=== PATIENT | male | born 1980 | race Caucasian/White ===

== ENCOUNTER 2021-03-29 18:11 | Emergency (ER) | payer MEDICAID ==
[~2021-03-29] VITALS: Ht 180.3 cm; Wt 77.2 kg
--- NOTE | 2021-03-29 20:55 | NUR ---
ASSUMED CARE OF PT. PT ROOMED IN BED 16. PT LYING IN BED TALKING TO UNSEEN PEOPLE.
[2021-03-29 21:21] LABS: BASOPHILS % (AUTO) 0.7 % (0-1); EOSINOPHILS # (AUTO) 0.1 X10'3 (0-0.9); EOSINOPHILS % (AUTO) 0.9 % (0-6); HEMATOCRIT 39.4 % (42.0-52.0); HEMOGLOBIN 13.3 g/dl (14.0-17.9); LYMPHOCYTES # (AUTO) 2.3 X10'3 (1.1-4.8); LYMPHOCYTES % (AUTO) 35.3 % (21-51); MEAN CORPUSCULAR HEMOGLOBIN 27.6 PG (27.0-31.0); MEAN CORPUSCULAR HGB CONC 33.7 g/dL (33.0-36.5); MEAN CORPUSCULAR VOLUME 81.9 FL (78-98); MEAN PLATELET VOLUME 8.1 FL (7.4-10.4); NEUTROPHILS # (AUTO) 3.1 X10'3 (1.8-7.7); NEUTROPHILS % (AUTO) 48.1 % (42-75); PLATELET COUNT 256 X10'3 (140-440); RED BLOOD COUNT 4.82 X10'6 (4.70-6.10); RED CELL DISTRIBUTION WIDTH 13.6 % (11.5-14.5); WHITE BLOOD COUNT 6.4 X10'3 (4.5-11.0)
[2021-03-29 21:35] LABS: ALANINE AMINOTRANSFERASE 33 U/L (12-78); ALBUMIN 4.3 G/DL (3.4-5.0); ALBUMIN/GLOBULIN RATIO 1.3 (1.1-1.5); ALKALINE PHOSPHATASE 87 IU/L (46-116); ANION GAP 12 (8-16); ASPARTATE AMINO TRANSFERASE 32 U/L (10-37); BILIRUBIN,TOTAL 0.9 MG/DL (0.1-1.0); BLOOD UREA NITROGEN 19 MG/DL (7-18); BUN/CREATININE RATIO 22.1 (5.4-32.0); CHLORIDE 104 MMOL/L (99-107); CREATININE 0.86 MG/DL (0.60-1.10); GLUCOSE 83 MG/DL (70-104); POTASSIUM 3.7 MMOL/L (3.5-5.1); SODIUM 141 MMOL/L (135-145); TOTAL CARBON DIOXIDE 24.7 MMOL/L (24-32); TOTAL PROTEIN 7.6 G/DL (6.4-8.2); eGFR > 90 ML/MIN
[2021-03-29 21:45] LABS: ETHANOL < 0.010 GM/DL (0.0-0.010)
[2021-03-29 21:52] LABS: ACETAMINOPHEN < 2.0 UG/ML (10-30)
[2021-03-29 22:21] LABS: CLARITY,URINE SLIGHTLY CLOUDY (Clear); COLOR,URINE YELLOW (Yellow); GLUCOSE, URINE NEGATIVE (Neg); PROTEIN,URINE TRACE mg/dl (Neg); UA COLLECTION TYPE NON-SPECIFIED
[2021-03-29 22:22] LABS: KETONES,URINE 40 mg/dl (Neg); LEUKOCYTE ESTERASE ,URINE NEGATIVE (Neg); NITRITES, URINE NEGATIVE (Neg); OCCULT BLOOD,URINE NEGATIVE (Neg); UROBILINOGEN,URINE 0.2 E.U/dL (0.2-1.0)
[2021-03-29 22:25] LABS: URINE AMPHETAMINE SCREEN POSITIVE (Neg); URINE BARBITUATE SCREEN NEGATIVE (Neg); URINE BENZODIAZEPINES SCREEN POSITIVE (Neg); URINE CANNABINOID SCREEN POSITIVE (Neg); URINE COCAINE SCREEN NEGATIVE (Neg); URINE METHADONE SCREEN NEGATIVE (Neg); URINE OPIATE SCREEN NEGATIVE (Neg); URINE PHENCYCLIDINE SCREEN NEGATIVE (Neg)
[2021-03-29 22:28] LABS: RBC,URINE 0-2 /HPF (0-2); WBC,URINE 30-50 /HPF (0-4)
[2021-03-29 22:29] LABS: BACTERIA,URINE FEW /HPF (Neg); MUCUS STRANDS FEW /LPF (Neg); SQUAMOUS EPITHELIAL CELL,UR FEW /LPF (FEW)
--- NOTE | 2021-03-29 22:41 | NUR ---
PT HAS CHANGED INTO GREEN SCRUBS. HE PROVIDED A URINE SAMPLE. CONTINUES TO TALK TO HIMSELF.
[2021-03-29 22:50] LABS: TOTAL CELLS COUNTED 100
[2021-03-29 22:51] LABS: PLATELET ESTIMATE NORMAL
--- NOTE | 2021-03-30 00:13 | NUR ---
PT ATTEMPTS TO SLEEP, THEN SITS UP, LOOKS AROUND, STARTS TALKING TO UNSEEN PEOPLE, AND THEN LIES BACK DOWN
--- NOTE | 2021-03-30 02:14 | NUR ---
pt continues to attempt sleep, department quite noise due to amount of incoming pts
--- NOTE | 2021-03-30 04:39 | NUR ---
PT IS NOW SLEEPING COMFORTABLY WITH BLANKET. EQUAL RISE AND FALL OF CHEST.
--- NOTE | 2021-03-30 06:43 | NUR ---
PT SLEEPING CALMLY. EQUAL RISE AND FALL OF CHEST.
--- NOTE | 2021-03-30 10:59 | NUR ---
Patient transferred from main ER to room 22, patient c/o being cold and hungry. Warm blanket given and Reg diet try ordered. This singer songwriter attempted to orient patient, patient is not willing to do interview. Rather patient is monaing and rolling back and forth compling that no one is taking care of him, when asked what he needs patient just rolls back and forth.
--- NOTE | 2021-03-30 11:34 | NUR ---
Patient sleeping on left side appears to be comfortable.
--- NOTE | 2021-03-30 14:11 | NUR ---
Faxed packet to [facility] for JOSE garcia
--- NOTE | 2021-03-30 14:11 | NUR ---
Patient woke up from resting and ate his lunch cold, patient did not want anything warmed up. Patient is now sleeping on his back side with his arms above his head. Patient appears to be resting.
--- NOTE | 2021-03-30 14:27 | NUR ---
Patient sleeping unwilling to interview with this board writer, patient just states "no one has helped me since I have been here I need klonipin", It should be noted that there is no external med req for medication prescribed by a MD.
--- NOTE | 2021-03-30 15:49 | NUR ---
Patient sleeping on back side un willing to interview with this group underwriter, appears to be under no distress.
--- NOTE | 2021-03-30 17:23 | NUR ---
Patient resting on his right side, appears comfortable
--- NOTE | 2021-03-30 18:43 | NUR ---
Patient is sleeping on his right side. In view from the nurses station.
--- NOTE | 2021-03-30 19:32 | NUR ---
Patient sleeping in supine position. No distress.
[2021-03-30] MEDS ORDERED: buprenorphine/naloxone 8MG-2MG SUBlingual film SL STA (22:07)
[2021-03-30] MEDS ORDERED: traZODone 50mg tablet PO SCH (22:10)
--- NOTE | 2021-03-30 22:40 | NUR ---
Patient awoke, exhibited anxiety, he moans and complains of "pain all over my body." The patient tells this card writer hand he is about a week off of suboxone. Pain is described as an "8 out of 10." This card writer hand consulted the PA provider. Suboxone ordered along with Trazadone 100 mg PO. Patient is medication compliant.
--- NOTE | 2021-03-31 01:30 | NUR ---
Patient is now sleeping again. A few minutes earlier patient finished a sandwich. Some anxiety was present. Patient was given warm blankets.
--- NOTE | 2021-03-31 02:36 | NUR ---
Patient sleeping low fowlers position on his right side. No distress.
--- NOTE | 2021-03-31 03:58 | NUR ---
Patient is sleeping with knees flexed. No distress.
--- NOTE | 2021-03-31 05:57 | NUR ---
Patient is sleeping on his right side, no distress. In view from nurses station .
--- NOTE | 2021-03-31 07:20 | NUR ---
Patient is laying on his right side sleeping. Respirations are even and nonlabored.
[2021-03-31] MEDS ORDERED: buprenorphine/naloxone 8MG-2MG SUBlingual film SL STA (09:50)
[2021-03-31] MEDS ORDERED: OLANZapine 2.5MG tablet PO STA (09:53)
[2021-03-31] MEDS ORDERED: clonazePAM 1mg tablet PO ONE (09:55)
--- NOTE | 2021-03-31 10:17 | NUR ---
Patient has been talking to his mother on the telephone and has been unable to secure a train pass. Patient is being discharged and was not placed on a [id number]
[2021-03-31 10:39] VITALS: BP 115/77
== END 2021-03-31 10:43 ==
LOC: ER 18:14
DX: F29 Unspecified psychosis not due to a substance or known physiological condition (principal); Z20.822 Contact with and (suspected) exposure to COVID-19; Z88.8 Allergy status to other drugs, medicaments and biological substances
CPT/HCPCS: 36415; 80053; 80305; 80320; 80329; 81001; 84443; 85007; 85025; 87635; 99285; C9803